=== PATIENT | male | born 1965 | race Caucasian/White ===

== ENCOUNTER 2020-08-13 02:29 | Inpatient (IN) | payer OTHER ==
[2020-08-13] VITALS (13 sets, daily range): BP systolic 98–139; BP diastolic 50–73
[~2020-08-13] VITALS: Ht 172.7 cm; Wt 111.1 kg
[2020-08-13 03:07] LABS: ABSOLUTE NEUTROPHILS 5.5 thou/uL (1.4-8.2); BASOPHILS 0.1 % (0.0-2.0); EOSINOPHILS 0.6 % (0.0-3.0); HEMATOCRIT 38.4 % (42.0-52.0); HEMOGLOBIN 12.8 gm/dL (14.0-18.0); LYMPHOCYTES 4.8 % (24.0-44.0); MCH 29.7 pg (26.0-34.0); MCHC 33.5 g/dL (28.0-37.0); MCV 88.7 fL (80.0-100.0); MONOCYTES 1.7 % (1.0-8.0); PLATELET COUNT 162 thou/uL (150-400); POLYS 92.8 % (36.0-66.0); RBC 4.33 mil/uL (4.50-6.00); RDW 14.7 % (10.5-14.5)
[2020-08-13 03:12] LABS: ANION GAP 12 mmol/L (7-16); BUN 22 mg/dL (7-18); CALCIUM 8.5 mg/dL (8.5-10.1); CHLORIDE 105 mmol/L (98-107); CO2 23 mmol/L (21-32); CREATININE 1.4 mg/dL (0.7-1.3); GLUCOSE 196 mg/dL (74-106); POTASSIUM 3.6 mmol/L (3.5-5.1); SODIUM 140 mmol/L (136-145)
[2020-08-13 03:22] LABS: ALBUMIN 3.5 g/dL (3.4-5.0); SGOT 54 U/L (15-37); SGPT 92 U/L (16-63); TOTAL BILIRUBIN 0.4 mg/dL (0.2-1.0); TROPONIN-I <0.06 ng/mL (<0.06)
[2020-08-13 03:48] LABS: URINE BILIRUBIN NEGATIVE (Negative); URINE BLOOD 1+ (Negative); URINE CLARITY CLEAR; URINE COLOR YELLOW; URINE GLUCOSE-RANDOM* NEGATIVE (Negative); URINE KETONES NEGATIVE (Negative); URINE LEUKOCYTES-REFLEX NEGATIVE (Negative); URINE NITRITE-REFLEX NEGATIVE (Negative); URINE PROTEIN (DIPSTICK) 2+ (Negative); URINE SPECIFIC GRAVITY >= 1.030 (1.005-1.035); URINE UROBILINOGEN 0.2 E.U./dl (0.2-1.0)
[2020-08-13 03:56] LABS: BACTERIA-REFLEX 1-9 Few /HPF (None Seen); CASTS None Seen /LPF (None Seen); CRYSTALS None Seen /LPF (None Seen); MUCUS 0-3 Light strn/LPF (None Seen); SQUAMOUS 0-3 Few /LPF (0-3); URINE RBC 1-2 Rare /HPF (NONE SEEN); URINE WBC-REFLEX 0-5 Rare /HPF (0-5)
[2020-08-13 04:32] LABS: HCO3 21.2 mmol/L (22.0-26.0); PCO2 31.4 mmHg (35.0-45.0); PO2 73.9 mmHg (80.0-100.0); pH 7.447 (7.360-7.450); sO2 95.6 % (92.0-98.0)
[2020-08-13] MEDS ORDERED: ARIPIPRAZOL1 MG/1 ML PO (04:38)
[2020-08-13] MEDS ORDERED: SERTRALINE HCL100 MG PO (04:39)
[2020-08-13] MEDS ORDERED: CRESTOR5 MG PO (04:39)
[2020-08-13] MEDS ORDERED: ABILIFY 2 MG2 M1 PO (04:42)
[2020-08-13 05:08] LABS: CHOLESTEROL 158 mg/dL (<200); HDL CHOLESTEROL 47 mg/dL (>40); LDL CHOLESTEROL 84 mg/dL (<100); TC:HDL 3.4 Ratio (Not establshd); TRIGLYCERIDE 138 mg/dL (<150); VLDL 28 mg/dL (<40)
[2020-08-13 05:09] LABS: SERUM ASSESSMENT Clear
--- NOTE | 2020-08-13 07:39 | NUR ---
Patient here from ER via cart. Pt able to get off cart and move self to bed. Pt alightly dyspenic with this activity. Patient on 2L with adequate oxygenation. Heart rate and rhythm stable. Afebrile at this time. NO complaints of pain. Full admission conpleted with assistance of patient. IVF infusing as well as vanco from the ER.
[2020-08-13 07:52] LABS: CALCIUM 7.8 mg/dL (8.5-10.1); CREATININE 1.1 mg/dL (0.7-1.3); POTASSIUM 3.8 mmol/L (3.5-5.1)
[2020-08-13 07:55] LABS: APTT 27.6 Seconds (24.5-32.8); INR 1.12; PROTIME 12.1 Seconds (9.3-11.4)
--- NOTE | 2020-08-13 11:15 | EKG ---
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
--- NOTE | 2020-08-13 17:32 | NUR ---
PT TRANSFERED TO THE UNIT FROM THE ICU - ORIENTED TO ROOM AND BEDSPACE. PEYMAN DIET AND FLUIDS. NO CO'S OF PAIN OR NAUSEA. PT WIDHING TO REST DUE TO LATE NIGHT. NO CO'S AT THE PRESENT TIME.
--- NOTE | 2020-08-13 18:08 | NUR ---
ASSUMED PATIENT CARE AT 0700. PATIENT TITRATED TO ROOM AIR, REQUESTS 2L O2 FOR COMFORT. LACTATE < 2. PATIENT TRANSFERED TO CCU AT 1700. BELONGINGS INCLUDING CELL PHONE, CLOTHES AND SHOES SENT WITH PATIENT. PATIENT PROGRESSING TOWARDS GOALS OF CARE.
--- NOTE | 2020-08-14 02:51 | NUR ---
ASSESSMENTS CHARTED, MEDS CHARTED GIVEN. PATIENT RESTING IN CHAIR DURING SHIFT DUE TO THE BED BEING UNCOMFORTABLE FOR HIS BACK. PATIENTS LABS CAME BACK POSITIVE FOR GRAM NEGATIVE AND GRAM POSITIVE COCCI. SPOKE WITH CLARA KING, NO NEW ORDERS RECEIVED. PATIENT BECAME AFIBRILE DURING SHIFT. PLAN OF CARE TO CONTINUE ANTIBIOTIC TREATMENT. FALL PRECAUTIONS IN PLACE DURING SHIFT.
[2020-08-14 03:05] LABS: GLYCOHEMOGLOBIN (HGB A1C) 5.7 % (4.8-5.6)
[2020-08-14 04:09] VITALS: BP 107/57
[2020-08-14 04:34] LABS: HEMOGLOBIN 11.4 gm/dL (14.0-18.0); MCH 30.2 pg (26.0-34.0); MCHC 33.6 g/dL (28.0-37.0); MCV 89.7 fL (80.0-100.0); RBC 3.79 mil/uL (4.50-6.00); RDW 14.8 % (10.5-14.5); WBC 4.9 thou/uL (4.0-11.0)
[2020-08-14 04:50] LABS: ALBUMIN 2.8 g/dL (3.4-5.0); CALCIUM 7.9 mg/dL (8.5-10.1); CREATININE 1.2 mg/dL (0.7-1.3); POTASSIUM 3.5 mmol/L (3.5-5.1); TOTAL BILIRUBIN 0.5 mg/dL (0.2-1.0); TOTAL PROTEIN 6.4 g/dL (6.4-8.2)
[2020-08-14 08:00] VITALS: BP 125/66; BP 145/79
[2020-08-14 12:00] VITALS: BP 145/79
[2020-08-14 16:00] VITALS: BP 151/77
--- NOTE | 2020-08-14 16:24 | NUR ---
PT IS AXOX4, PLEASANT. PT DENIES PAIN, VSS, AFEBRILE, SR ON MONITOR. DR CALLAWAY CONSULTED. ABX THERPAY CONTINUED. LOW FALL RISK, PT IS UP AD JUAN TO TOILET, ACTIVITY TOLERATED. RT CONSULTED; PT O2 SAT IS 100% ON ROOM AIR. POC IS TO CONTINUE ABX UNTIL CULTURE ARE READ. PT COMMUNICATES UNDERSTANDING. NO CONCERNS AT THIS TIME.
[2020-08-14 20:06] VITALS: BP 132/77
[2020-08-15 05:00] VITALS: BP 132/76
[2020-08-15 07:35] VITALS: BP 148/77
[2020-08-15 09:39] LABS: ALBUMIN 3.2 g/dL (3.4-5.0); CALCIUM 8.6 mg/dL (8.5-10.1); CREATININE 1.2 mg/dL (0.7-1.3); POTASSIUM 3.8 mmol/L (3.5-5.1); TOTAL BILIRUBIN 0.5 mg/dL (0.2-1.0); TOTAL PROTEIN 6.9 g/dL (6.4-8.2)
[2020-08-15 11:43] VITALS: BP 122/84
[2020-08-15 15:41] VITALS: BP 41/79
--- NOTE | 2020-08-15 16:52 | NUR ---
1600 ROUNDS, PT WAS UP WALKING THE HALLS, PT HAD A SHOWER TODAY AND STATES HE FEELS BETTER. PT DENIES PAIN AT THIS TIME. VSS. WILL CONTINUE TO MONITOR AND FOLLOW POC.
[2020-08-15 17:39] VITALS: BP 128/81
--- NOTE | 2020-08-15 18:17 | NUR ---
ASSUMED PT CARE UPON TRANSFER TO UNIT AROUND 1735. PATIENT A&OX4. HAS NO COMPLAINTS OF PAIN, NUMBNESS, OR TINGLING. PATIENT ABLE TO MAKE NEEDS KNOWN, CALL LIGHT WITHIN REACH.
[2020-08-15 19:57] VITALS: BP 151/92
--- NOTE | 2020-08-16 00:14 | NUR ---
ASSUMED CARE OF PT AT SHIFT CHANGE. PT IS AOX4 AND UP AD JUAN. PT DENEID PAIN. NAUSEA OR SOA. ASSESSMENT CHARTED. PT WAS AFEBRILE THIS SHIFT. PT RAN SR ON TELE. PT WALKED AROUND THE UNIT. VSS AND NO S/S OF ACUTE DISTRESS. PT IS PROGRESSING TOWARDS DC GOALS. WILL CONTINUE TO MONITOR.
[2020-08-16 04:17] LABS: HEMATOCRIT 34.3 % (42.0-52.0); HEMOGLOBIN 11.6 gm/dL (14.0-18.0); MCHC 33.7 g/dL (28.0-37.0); MCV 88.9 fL (80.0-100.0); RBC 3.86 mil/uL (4.50-6.00); WBC 5.7 thou/uL (4.0-11.0)
[2020-08-16 04:29] LABS: ALBUMIN 2.9 g/dL (3.4-5.0); CALCIUM 8.9 mg/dL (8.5-10.1); MAGNESIUM 2.1 mg/dL (1.8-2.4); POTASSIUM 3.8 mmol/L (3.5-5.1); TOTAL BILIRUBIN 0.3 mg/dL (0.2-1.0); TOTAL PROTEIN 6.9 g/dL (6.4-8.2)
[2020-08-16 05:32] VITALS: BP 146/85
[2020-08-16 07:32] VITALS: BP 149/84
--- NOTE | 2020-08-16 09:47 | NUR ---
ASSUMED PT CARE THIS AM. PT VSS, A&OX4. PATIENT ABLE TO MAKE NEEDS KNOWN. AMBULATES AROUND THE ROOM INDEPENDENTLY. PATIENT REMAINS CONTINENT. HYDRATION ENCOURAGED. IV PATENT, SALINE LOCKED. PATIENT REMAINS ON TELEMETRY. TETANUS BOOSTER GIVEN THIS AM. ON ROOM AIR. REPORTING NO PAIN, NUMBNESS, OR TINGLING. TOOK MORNING MEDS, REFUSED ENOXAPARIN SINCE DISCHARGING TODAY WELL GUAFENESIN PO.
[2020-08-16] MEDS ORDERED: MUCINEX600 MG PO (11:21)
[2020-08-16] MEDS ORDERED: PREDNISONE 20 M20 M1 PO (11:21)
[2020-08-16] MEDS ORDERED: ACETAMINOPHEN325 M1 PO (11:21)
[2020-08-16] MEDS ORDERED: AMOX TR-K CLV1 EAC4 PO (11:21)
[2020-08-16 11:28] VITALS: BP 149/84
--- NOTE | 2020-08-16 11:45 | NUR ---
PT ADMITTED RELATED TO SEVERE SEPSIS AND PNEUMONIA. CM REVIEWED CHART AND SPOKE WITH CARE TEAM. CM MET WITH PT AT BEDSIDE THIS DAY. PT APPEARED TO BE A&O X4. CM ROLE INTRODUCED. PT INDICATED HE RESIDES IN A HOUSE ALONE WITH NO STEPS TO ENTER AND 20 STEPS INSIDE. 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 PT PLANS TO RETURN HOME WITH NO NEEDS ONCE MEDICALLY STABLE. CARE TEAM INDICATED THAT PT IS MEDICALLY STABLE TO DC HOME THIS DAY. PT TO DC HOME TO SELF CARE. PT'S MOTHER PROVIDING TRANSPORT HOME. CASE CLOSED.
== END 2020-08-16 11:44 | disposition home or self-care (01) | DRG 871 ==
LOC: ER 02:29 → EROBS 03:46 → 2N 03:46 → ICU 05:56 → 2N 17:06 → 4W 08-15 17:26
PROVIDERS: Emergency Medicine; Nurse Practitioner Family; ADMIT Internal Medicine; ATTEND Internal Medicine
DX: A41.51 Sepsis due to Escherichia coli [E. coli] (principal); J18.9 Pneumonia, unspecified organism; J96.01 Acute respiratory failure with hypoxia; E78.5 Hyperlipidemia, unspecified; F17.210 Nicotine dependence, cigarettes, uncomplicated; R65.20 Severe sepsis without septic shock; I34.1 Nonrheumatic mitral (valve) prolapse; F41.9 Anxiety disorder, unspecified; F32.9 Major depressive disorder, single episode, unspecified; D64.9 Anemia, unspecified; D69.6 Thrombocytopenia, unspecified; J44.9 Chronic obstructive pulmonary disease, unspecified; E66.9 Obesity, unspecified; E11.9 Type 2 diabetes mellitus without complications; I10 Essential (primary) hypertension; Z20.822 Contact with and (suspected) exposure to COVID-19; Z68.37 Body mass index [BMI] 37.0-37.9, adult; Z23 Encounter for immunization
CPT/HCPCS: 10045; 10081

== ENCOUNTER 2020-08-18 07:37 | Inpatient (IN) | payer OTHER ==
[~2020-08-18] VITALS: Ht 170.2 cm; Wt 103.0 kg
[2020-08-18] VITALS (17 sets, daily range): BP systolic 93–124; BP diastolic 44–66
[~2020-08-18 07:37] MED LIST: ABILIFY 2 MG2 M1 PO; ACETAMINOPHEN325 M1 PO; AMOX TR-K CLV1 EAC4 PO; ARIPIPRAZOL1 MG/1 ML PO; CRESTOR5 MG PO; MUCINEX600 MG PO; PREDNISONE 20 M20 M1 PO; SERTRALINE HCL100 MG PO
[2020-08-18] MEDS ORDERED: ASA81BEC PO (08:00)
[2020-08-18] MEDS ORDERED: FISH OIL 1,001000 M3 PO (08:00)
[2020-08-18] MEDS ORDERED: DAILY VITAMIN1 EAC6 PO (08:01)
[2020-08-18 08:37] LABS: MCH 29.9 pg (26.0-34.0); WBC 12.4 thou/uL (4.0-11.0)
[2020-08-18 08:40] LABS: MCHC 33.1 g/dL (28.0-37.0); MCV 90.4 fL (80.0-100.0); RBC 2.04 mil/uL (4.50-6.00); RDW 14.8 % (10.5-14.5)
[2020-08-18 08:43] LABS: HEMATOCRIT 18.5 % (42.0-52.0); HEMOGLOBIN 6.1 gm/dL (14.0-18.0)
[2020-08-18 08:44] LABS: PLATELET COUNT 250 thou/uL (150-400)
[2020-08-18 08:55] LABS: CALCIUM 7.5 mg/dL (8.5-10.1); CREATININE 1.2 mg/dL (0.7-1.3); POTASSIUM 4.1 mmol/L (3.5-5.1)
[2020-08-18 08:58] LABS: INR 1.1; PROTIME 11.9 Seconds (10.5-12.1)
[2020-08-18 09:00] LABS: APTT 20.1 Seconds (24.5-32.8)
[2020-08-18 09:01] LABS: ALBUMIN 2.2 g/dL (3.4-5.0); TOTAL BILIRUBIN 0.2 mg/dL (0.2-1.0); TOTAL PROTEIN 4.8 g/dL (6.4-8.2)
[2020-08-18 09:22] LABS: ABSOLUTE NEUTROPHILS 8.7 thou/uL (1.4-8.2); ANISOCYTOSIS 1+; PLATELET ESTIMATE NORMAL
--- NOTE | 2020-08-18 12:15 | NUR ---
PT CAME FROM ER TO ICU AT 1130. PT ALERT AND ORIENTED X4. PT CONNECTED TO ICU MONITORS. PT WAS RECEIVING ONE UNIT PRBC TRANSFUSION WHEN ARRIVED TO ICU FOR HGB 6.1. PT VITAL SIGNS AFTER ARRIVING TO ICU AT 1141 WAS HR- 101, BP- 100/55 MAP 70 AND SPO2 99. PT ON ROOM AIR. NO COMPLAINTS EXPRESSED AT THIS MOMENT. CONTINUE TO MONITOR.
--- NOTE | 2020-08-18 13:03 | EKG ---
[address] 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 08/18/20 1303 0859 Daryn Irwin MD, [facility] /EPI
[2020-08-18 13:47] LABS: HEMATOCRIT 22.2 % (42.0-52.0); HEMOGLOBIN 7.4 gm/dL (14.0-18.0)
[2020-08-18 16:38] LABS: HEMATOCRIT 21.8 % (42.0-52.0); HEMOGLOBIN 7.4 gm/dL (14.0-18.0)
[2020-08-19] VITALS (24 sets, daily range): BP systolic 79–139; BP diastolic 34–70
[2020-08-19 04:54] LABS: MCHC 34.7 g/dL (28.0-37.0); RBC 1.96 mil/uL (4.50-6.00)
[2020-08-19 04:56] LABS: MCH 30.7 pg (26.0-34.0); MCV 88.4 fL (80.0-100.0); RDW 14.9 % (10.5-14.5); WBC 9.6 thou/uL (4.0-11.0)
[2020-08-19 05:34] LABS: HEMATOCRIT 17.3 % (42.0-52.0)
--- NOTE | 2020-08-19 05:56 | NUR ---
Patient making slow progress towards outcome goals. Tolerating clear liquids. Up to chair with minimal assist. Rhythm stable. Oxygenation optimal on room air. Had 3 black liquid stools x 3 large/moderate/small. Hemoglobin this morning 6. Repeorted to Dr Darling with orders to transfuse 2 units PRBC this morning. IVfluids infusing. SBP low 90's to 110's.
--- NOTE | 2020-08-19 09:07 | NUR ---
chart review. cm visited with pt at bedside, he requested to speak with dr gordon Id, pass on to dr gordon. cm intro to transition of care. receiving blood transfusion. GI following. he is independent, lives home, alone, 10 stairs up to bedroom. no dme, works outside home, ready for "shower and get to go home. hopefully saturday."/mariella. no anticipated needs at dc. DCP: home no needs when ready for dc
[2020-08-19] MEDS ORDERED: AUGMENTIN 875-1 EACH PO (09:33)
[2020-08-19] MEDS ORDERED: PREDNISONE 10 M10 MG PO (09:36)
--- NOTE | 2020-08-19 10:05 | NUR ---
PT SEEN BY GI CORING MACHINE OPERATOR JAZ, SPOKE ABOUT CURRENT GOAL OF CARE, RESUMING MEDICATIONS, WELL ADVANCING DIET. PT IS RECEIVING 2UNIT OF BLOOD FOLLOWING HGB LEVEL. WHAT WAS DONE DURING THE EGD WAS, INTERVENTION OF THE DIEULAFOY LESION WAS DISCUSSED, PT ALSO HAD A BM, BLACK/TARRY REMAINING STOOL, STATES ITS NOT RED BEFORE. RN CONTINUING TO MONITOR
[2020-08-19 16:05] LABS: HEMATOCRIT 24.2 % (42.0-52.0)
[2020-08-19 16:07] LABS: HEMOGLOBIN 8.3 gm/dL (14.0-18.0)
--- NOTE | 2020-08-19 16:25 | P ---
[facility] [place] [address] PROCEDURE REPORT Name: JUDY CAICEDO Room #: 243-P ADM IN M.R.#: [id number] Admission: 08/18/20 Attend Phys: Dylan Escalante MD Discharge: Date of : 67 Report #: [id number] THIS REPORT FOR: cc: Tj Richter K. Steven DO McElhinney, Christian C. MD ~ DOC #: [id number] cc: MD Zhen Das MD PROCEDURE PERFORMED: Upper endoscopy with bleeding control. HISTORY OF PRESENT ILLNESS: The patient is a 54-year-old male with a recent hospitalization for pneumonia, Escherichia coli sepsis, was taking aspirin on a daily basis. Yesterday had significant melanotic stools. No previous history of GI bleed, felt very faint, dizzy and weak. In general, this morning he had several episodes of hematemesis. Again, no previous history of a GI bleed. His hemoglobin was 6.1. He is now being transfused at this time for 2 units. He was placed on PPI therapy. Plan is for upper endoscopy. DESCRIPTION OF PROCEDURE: The risks and benefits of the procedure were explained to the patient, those risks including but not limited to bleeding, perforation and the risk of sedation. He understood these risks and gave informed consent. The patient was intubated and general anesthesia was performed. Next, using a standard Olympus upper endoscope, the scope was placed in the patient's mouth and advanced under direct vision through the esophagus, stomach and into the second portion of the duodenum. The upper and mid esophagus was normal in appearance. In the distal esophagus, grade B erosive esophagitis was noted. Upon entering the stomach, a large clot was noted in the gastric fundus with some fresh bright red blood noted in this area as well. I was able to suction out the liquid blood, but clots remained. I then proceeded further. The gastric body had old blood in many areas. Multiple washings and aspirations were performed. No obvious lesions were noted in the gastric body or antrum. The pylorus was normal and patent. The duodenal bulb, first and second portion were normal other than some old blood. Scope was then brought back up into the patient's stomach. I then proceeded to remove the clots with a Carlson Net. At this point, there was an obvious arterial bleed with bright red blood streaming from what appears to be a Dieulafoy lesion in the gastric fundus, I proceeded with injecting this with a total of 3 mL of epinephrine. This slowed the bleeding significantly. At this point two endoclips were placed without difficulty. No further bleeding was noted. The lesion appears to be a Dieulafoy lesion. There is no obvious ulceration other than just possibly 1 mm. At this point, the scope was then withdrawn and the procedure terminated. The patient tolerated the procedure well. IMPRESSION: [facility] [address] [place] [address] PROCEDURE REPORT Name: JUDY CAICEDO Room #: 243-P [facility] IN M.R.#: [id number] Admission: 08/18/20 Attend Phys: Dylan Escalante MD Discharge: Date of : 67 Report #: [id number] 1. Actively bleeding Dieulafoy lesion in the gastric fundus, status post epinephrine and endoclip placement. No further bleeding noted. 2. Grade B erosive esophagitis. 3. Otherwise, normal upper endoscopy. RECOMMENDATIONS: 1. Observe the patient post-procedure. 2. Continue to monitor hemoglobin closely. 3. Continue PPI therapy. We will start clear liquids today. 4. We will repeat upper endoscopy in approximately 4-6 weeks' time to verify complete healing. Continue to hold aspirin. Thank you for allowing me to participate in his care. Zhen Lopez MD [facility] <ELECTRONICALLY SIGNED> By: Zhen Lopez MD 08/19/20 1625 1451 1233 Zhen Lopez MD /nt
--- NOTE | 2020-08-19 23:11 | NUR ---
PT WAS TRANSFERRED TO ROOM 357 ON 3 WEST UNIT. REPORT WAS GIVEN TO EFRAIN HORNE. PT ALERT AND ORIENT TIMES FOUR. VSS, AFEBRILE. DENIES PAIN, SOB AND N/V. NO BLOODY STOOLS THIS SHIFT.
[2020-08-20 03:31] LABS: HEMATOCRIT 22.8 % (42.0-52.0); HEMOGLOBIN 7.6 gm/dL (14.0-18.0); MCH 28.7 pg (26.0-34.0); MCHC 33.3 g/dL (28.0-37.0); MCV 86.2 fL (80.0-100.0); RBC 2.64 mil/uL (4.50-6.00); WBC 7.9 thou/uL (4.0-11.0)
[2020-08-20 03:33] LABS: POTASSIUM 3.6 mmol/L (3.5-5.1)
[2020-08-20 06:21] VITALS: BP 114/65
--- NOTE | 2020-08-20 06:30 | NUR ---
Transferred from ICU around 2300. Pt. stated he slept some. Reported bm x2 small amount of blackish bm with dark small clots. Denies any concern at this time and hoping he gets to go home today.
[2020-08-20 07:21] VITALS: BP 112/68
[2020-08-20] MEDS ORDERED: CARAFATE 11 GM/10 M1 PO (09:21)
[2020-08-20] MEDS ORDERED: PROTONIX40 M2 PO (09:21)
[2020-08-20 11:01] VITALS: BP 112/68
--- NOTE | 2020-08-20 12:09 | NUR ---
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
== END 2020-08-20 12:11 | disposition home or self-care (01) | DRG 377 ==
LOC: ER 07:37 → ICU 09:23 → EROBS 09:23 → ICU 11:08 → 3W 08-19 23:07
PROVIDERS: Anesthesiology; Emergency Medicine; Nurse Practitioner; Nurse Practitioner Acute Care; Specialist; ADMIT Hospitalist; ATTEND Hospitalist
PROC: 30233N1 Transfusion of Nonautologous Red Blood Cells into Peripheral Vein, Percutaneous Approach (ICD-10-PCS; principal; 2020-08-18)
PROC: 0W3P8ZZ Control Bleeding in Gastrointestinal Tract, Via Natural or Artificial Opening Endoscopic (ICD-10-PCS; principal; 2020-08-18)
PROC: 0DC68ZZ Extirpation of Matter from Stomach, Via Natural or Artificial Opening Endoscopic (ICD-10-PCS; 2020-08-18)
DX: K31.82 Dieulafoy lesion (hemorrhagic) of stomach and duodenum (principal); R65.11 Systemic inflammatory response syndrome (SIRS) of non-infectious origin with acute organ dysfunction; E43 Unspecified severe protein-calorie malnutrition; D62 Acute posthemorrhagic anemia; E78.5 Hyperlipidemia, unspecified; F32.9 Major depressive disorder, single episode, unspecified; F41.9 Anxiety disorder, unspecified; K76.0 Fatty (change of) liver, not elsewhere classified; F12.10 Cannabis abuse, uncomplicated; K21.00 Gastro-esophageal reflux disease with esophagitis, without bleeding; F17.210 Nicotine dependence, cigarettes, uncomplicated; Z20.822 Contact with and (suspected) exposure to COVID-19; Z79.899 Other long term (current) drug therapy; Z79.82 Long term (current) use of aspirin
CPT/HCPCS: 10078; 10879; 62110; 62900; 65040; 70005; 85076

== ENCOUNTER → 2020-10-14 | Outpatient (CLI) | payer OTHER ==
[~2020-10-14] VITALS: Ht 175.3 cm; Wt 102.1 kg
[~2020-10-14] MED LIST changes: +ASA81BEC PO; +AUGMENTIN 875-1 EACH PO; +CARAFATE 11 GM/10 M1 PO; +DAILY VITAMIN1 EAC6 PO; +FISH OIL 1,001000 M3 PO; +PREDNISONE 10 M10 MG PO; +PROTONIX40 M2 PO
--- NOTE | 2020-10-18 12:42 | P ---
[facility] [place] [address] PROCEDURE REPORT Name: JUDY CAICEDO [id number] Admission: 10/14/20 Attend Phys: Zhen Leung Discharge: Date of : 67 Report #: [id number] THIS REPORT FOR: cc: Tj Richter K. Steven DO McElhinney, Christian C. MD ~ DOC #: [id number] cc: DO Zhen Huang MD DATE OF SERVICE: 10/14/2020 PROCEDURE PERFORMED: Upper endoscopy. HISTORY OF PRESENT ILLNESS: The patient is a 55-year-old male who was hospitalized for upper GI bleed in 07/2020. I performed an upper endoscopy on 08/18/2020 which showed actively bleeding Dieulafoy lesion in the gastric fundus, status post epinephrine and endoclip placement. A total of two endoclips were placed at that time. No further bleeding. He was on PPI therapy, but discontinued this two weeks ago. He is here for routine followup to reevaluate lesion. He denies any further bleeding. Denies any abdominal pain. DESCRIPTION OF PROCEDURE: The risks and benefits of the procedure were explained to the patient, those risks including but not limited to bleeding, perforation and the risk of sedation. He understood these risks and gave informed consent. Sedation was given using propofol per anesthesia. Next, using a standard Olympus upper endoscope, the scope was placed in the patient's mouth and advanced under direct vision through the esophagus, stomach and into the second portion of the duodenum. The esophagus was normal throughout. The GE junction was normal. In the fundus, a single endoclip remain were the previous Dieulafoy lesion was noted. There was no evidence of ulceration or bleeding. The remaining gastric mucosa was normal throughout. The pylorus was normal and patent. The duodenal bulb, first and second portion were all normal. The scope was then withdrawn and the procedure terminated. The patient tolerated the procedure well. IMPRESSION: 1. Previous Dieulafoy lesion is healing, a single endoclip remains in place. 2. Otherwise, normal upper endoscopy. RECOMMENDATIONS: 1. Observe at this point. 2. The patient does not need to continue long-term PPI therapy unless he has new symptoms in the future. [address] [address] PROCEDURE REPORT Name: JUDY CAICEDO Room #: REG NATALI Mi#: [id number] Admission: 10/14/20 Attend Phys: Zhen Leung Discharge: Date of : 67 Report #: [id number] Thank you for allowing me to participate in his care. Zhen Lopez MD [facility] <ELECTRONICALLY SIGNED> By: Zhen Lopez MD 10/18/20 1242 0929 2119 Zhen Lopez MD /nt
== END | disposition home or self-care (01) ==
LOC: GI 08:22 → EDSTATUS 16:10 → GI 16:35
PROVIDERS: ATTEND Specialist
DX: Z09 Encounter for follow-up examination after completed treatment for conditions other than malignant neoplasm (principal); K31.82 Dieulafoy lesion (hemorrhagic) of stomach and duodenum; E78.5 Hyperlipidemia, unspecified; F17.210 Nicotine dependence, cigarettes, uncomplicated; Z98.890 Other specified postprocedural states; Z79.899 Other long term (current) drug therapy; Z79.82 Long term (current) use of aspirin
CPT/HCPCS: 62110; 62900